=== PATIENT | female | born 1975 | race Caucasian/White ===

== ENCOUNTER → 2016-06-23 | Outpatient (CLI) | payer OTHER, MEDICARE ==
[~2016-06-23] MED LIST: AMITRIPTYLINE H50 M1 PO; AMITRIPTYLINE25 MG PO; AUGMENTIN 875 M1 TAB PO; BENTYL 20MG TAB20 MG PO; BENTYL 20MG20 MG/TAB PO; BENTYL20 MG PO; BIAXIN FILMTAB500 MG PO; CARAFATE 1GM1 G PO; CARAFATE PO; CIPRO 500MG TA500 MG PO; CORTIFOAM10% RC; DEPAKOTE ER 25250 MG PO; FIORICET 325 MG1 TA1 PO; HYDROXYZINE PO; IMODIUM 2MG CAPS2 MG PO; IMODIUM2 MG PO; KAPIDEX; LEVAQUIN 5500 MG/TAB PO; LOMOTIL 0.025 M1 TAB PO; LORTAB 10/500 51 TAB PO; LORTAB 5/500 501 TAB; LORTAB 5/500 501 TAB PO; LORTAB 7.5/5001 TAB; NASONEX SPRAY; NEXIUM 40MG40 MG PO; NEXIUM40 MG PO; NORCO 325 MG-101 TAB PO; NORCO 325 MG-51 TAB PO; PHENERGAN 25 TA25 MG PO; PHENERGAN25 MG; PHENERGAN25 MG RC; PREDNISONE10 MG; PREDNISONE10 MG PO; PREDNISONE20 MG PO; PREMARIN 1.251.25 MG PO; PYRIDIUM 100MG100 MG PO; SINGULAIR; SINGULAIR 110 MG/TAB PO; SOMA 350MG350 MG/TAB PO; ULTRAM 50MG TAB50 MG PO; VANCOMYCIN PO; VICODIN 5/5001 UDTAB PO; ZOFRAN 4MG T4 MG/TAB PO; [UNRECOGNIZED DRUG - CODE]; [UNRECOGNIZED DRUG - OTHER]
[2016-06-23 16:05] LABS: ADJUSTED CALCIUM 10.3 mg/dL (8.4-10.2); BILIRUBIN,TOTAL 0.5 mg/dL (0.0-1.0); CALCIUM 10.3 mg/dL (8.4-10.2); CREATININE, serum 0.52 mg/dL (0.52-1.25); POTASSIUM 4.2 mmol/L (3.4-5.0); TOTAL PROTEIN 7.2 gm/dL (6.4-8.2)
== END ==
LOC: ZCOL.LAB 16:02
DX: Z02.89 Encounter for other administrative examinations (principal)

== ENCOUNTER 2016-07-27 12:01 | Outpatient (CLI) | payer OTHER, MEDICARE | END 2016-07-27 12:07 | disposition home or self-care (01) | LOC: EUO 12:01 | DX: Z01.89 Encounter for other specified special examinations (principal) ==

== ENCOUNTER 2016-08-23 09:00 | Outpatient (RCR) | payer OTHER, MEDICARE ==
[2008-01-11 15:04] VITALS: BP 127/98
[2016-07-12 11:26] LABS: MEAN CELL VOLUME 71 fl (80.0-100.0); MEAN CORPUSCULAR HGB CONC 27 g/dl (33.0-37.0); MEAN PLATELET VOLUME 8.8 fl (7.4-10.4); PLATELET COUNT 930 K/mm3 (130-400); RED BLOOD COUNT 3.42 M/mm3 (4.10-5.30); WHITE BLOOD COUNT 19.4 K/mm3 (4.8-10.8)
[2016-07-12 11:29] LABS: HEMATOCRIT 24.4 % (37.0-47.0); HEMOGLOBIN 6.6 g/dl (12.5-16.0); MEAN CORPUSCULAR HEMOGLOBIN 19 pg (27.0-31.0)
[2016-07-12 11:43] VITALS: BP 133/80; PULSE 105; TEMP 98
[2016-07-12 12:14] LABS: ALBUMIN 3.7 gm/dL (3.5-5.0); BILIRUBIN,TOTAL 0.4 mg/dL (0.0-1.0); TOTAL PROTEIN 7.3 gm/dL (6.4-8.2)
[2016-07-12 13:08] LABS: BILIRUBIN,DIRECT 0.4 mg/dL (0.0-0.4)
[2016-07-26 11:28] LABS: MEAN CELL VOLUME 73 fl (80.0-100.0); MEAN CORPUSCULAR HGB CONC 26 g/dl (33.0-37.0); MEAN PLATELET VOLUME 9.2 fl (7.4-10.4); PLATELET COUNT 476 K/mm3 (130-400); RED BLOOD COUNT 3.45 M/mm3 (4.10-5.30); REDCELL DISTRIBUTION WIDTH-CV 17.3 % (11.5-14.5); WHITE BLOOD COUNT 11.4 K/mm3 (4.8-10.8)
[2016-07-26 11:40] LABS: HEMATOCRIT 25.1 % (37.0-47.0); HEMOGLOBIN 6.4 g/dl (12.5-16.0); MEAN CORPUSCULAR HEMOGLOBIN 19 pg (27.0-31.0)
[2016-07-26 11:44] LABS: ALBUMIN 4.1 gm/dL (3.5-5.0); BILIRUBIN,TOTAL 0.4 mg/dL (0.0-1.0); TOTAL PROTEIN 7.5 gm/dL (6.4-8.2)
[2016-07-26 11:58] LABS: BILIRUBIN,DIRECT 0.4 mg/dL (0.0-0.4)
[2016-07-26 12:00] VITALS: BP 133/91; PULSE 94; TEMP 97.6
[2016-07-27] VITALS (10 sets, daily range): BP systolic 112–139; BP diastolic 72–93; PULSE 93–102; TEMP 97.6–98.2
[~2016-08-23] VITALS: Ht 157.5 cm; Wt 53.6 kg
[2016-08-23 09:36] VITALS: BP 134/99; PULSE 98; TEMP 98.6
[2016-08-23 09:37] LABS: ALANINE AMINOTRANSFERASE 15 U/L (9-52); ALKALINE PHOSPHATASE 79 U/L (50-136); TOTAL PROTEIN 7.1 gm/dL (6.4-8.2)
[2016-08-23 10:17] LABS: MEAN CELL VOLUME 78 fl (80.0-100.0); MEAN CORPUSCULAR HGB CONC 28 g/dl (33.0-37.0); MEAN PLATELET VOLUME 9.4 fl (7.4-10.4); PLATELET COUNT 562 K/mm3 (130-400); RED BLOOD COUNT 3.98 M/mm3 (4.10-5.30); REDCELL DISTRIBUTION WIDTH-CV 22.6 % (11.5-14.5); WHITE BLOOD COUNT 12.3 K/mm3 (4.8-10.8)
[2016-08-23 10:22] LABS: HEMATOCRIT 30.9 % (37.0-47.0); HEMOGLOBIN 8.5 g/dl (12.5-16.0); MEAN CORPUSCULAR HEMOGLOBIN 21 pg (27.0-31.0)
[2016-08-23 11:23] LABS: BILIRUBIN,TOTAL 0.2 mg/dL (0.0-1.0)
== END 2016-08-23 13:35 | disposition home or self-care (01) ==
LOC: EUO 09:00
PROVIDERS: Internal Medicine; Internal Medicine Gastroenterology
DX: D64.9 Anemia, unspecified (principal); K52.9 Noninfective gastroenteritis and colitis, unspecified; Z79.899 Other long term (current) drug therapy
CPT/HCPCS: J3380; J7050; P9016

== ENCOUNTER 2016-10-18 08:51 | Outpatient (CLI) | payer OTHER, MEDICARE ==
[2008-01-11 15:04] VITALS: BP 127/98
[~2016-10-18] VITALS: Ht 157.5 cm; Wt 59.5 kg
[2016-10-18 09:36] LABS: MEAN CELL VOLUME 74 fl (80.0-100.0); MEAN CORPUSCULAR HGB CONC 28 g/dl (33.0-37.0); MEAN PLATELET VOLUME 9.8 fl (7.4-10.4); PLATELET COUNT 530 K/mm3 (130-400); RED BLOOD COUNT 4.14 M/mm3 (4.10-5.30); REDCELL DISTRIBUTION WIDTH-CV 16.3 % (11.5-14.5); WHITE BLOOD COUNT 7.7 K/mm3 (4.8-10.8)
[2016-10-18 09:41] LABS: HEMATOCRIT 30.8 % (37.0-47.0); HEMOGLOBIN 8.6 g/dl (12.5-16.0); MEAN CORPUSCULAR HEMOGLOBIN 21 pg (27.0-31.0)
[2016-10-18 09:48] LABS: ALANINE AMINOTRANSFERASE 23 U/L (9-52); ALBUMIN 4.1 gm/dL (3.5-5.0); ALKALINE PHOSPHATASE 67 U/L (50-136); BILIRUBIN,TOTAL 0.2 mg/dL (0.0-1.0); TOTAL PROTEIN 7.2 gm/dL (6.4-8.2)
[2016-10-18 10:06] VITALS: BP 128/88; PULSE 94; TEMP 98.1
== END 2016-10-18 11:22 | disposition home or self-care (01) ==
LOC: EUO 08:51
PROVIDERS: Internal Medicine Gastroenterology
DX: K51.818 Other ulcerative colitis with other complication (principal)
CPT/HCPCS: J3380; J7050

== ENCOUNTER 2016-12-13 08:48 | Outpatient (CLI) | payer OTHER, MEDICARE ==
[2008-01-11 15:04] VITALS: BP 127/98
[~2016-12-13] VITALS: Ht 157.5 cm; Wt 60.0 kg
[2016-12-13 09:19] LABS: MEAN CELL VOLUME 74 fl (80.0-100.0); MEAN CORPUSCULAR HGB CONC 27 g/dl (33.0-37.0); MEAN PLATELET VOLUME 9.6 fl (7.4-10.4); PLATELET COUNT 493 K/mm3 (130-400); WHITE BLOOD COUNT 8.9 K/mm3 (4.8-10.8)
[2016-12-13 09:36] LABS: ALBUMIN 4.3 gm/dL (3.5-5.0); TOTAL PROTEIN 7.5 gm/dL (6.4-8.2)
[2016-12-13 09:41] VITALS: BP 144/98; PULSE 82; TEMP 97.7
[2016-12-13 09:46] LABS: HEMATOCRIT 32.4 % (37.0-47.0); HEMOGLOBIN 8.8 g/dl (12.5-16.0); MEAN CORPUSCULAR HEMOGLOBIN 20 pg (27.0-31.0); RED BLOOD COUNT 4.38 M/mm3 (4.10-5.30)
[2016-12-13 09:49] LABS: BILIRUBIN,DIRECT 0.3 mg/dL (0.0-0.4); BILIRUBIN,TOTAL 0.3 mg/dL (0.0-1.0)
== END 2016-12-13 12:00 | disposition home or self-care (01) ==
LOC: EUO 08:48
PROVIDERS: Internal Medicine Gastroenterology
DX: K51.818 Other ulcerative colitis with other complication (principal); Z79.899 Other long term (current) drug therapy
CPT/HCPCS: J3380; J7050

== ENCOUNTER 2017-01-06 09:30 | Outpatient (RCR) | payer OTHER, MEDICARE ==
[2008-01-11 15:04] VITALS: BP 127/98
[2016-12-30 15:21] VITALS: BP 134/88; PULSE 93; TEMP 97.4
[2017-01-02 11:09] VITALS: BP 123/84; PULSE 86; TEMP 98.4
[2017-01-04 10:50] VITALS: BP 127/97; PULSE 95; TEMP 98.7
[~2017-01-06] VITALS: Ht 157.5 cm; Wt 62.9 kg
[~2017-01-06 09:30] MED LIST changes: +OMNICEF 300MG300 MG PO
[2017-01-06 10:15] VITALS: BP 140/95; PULSE 82; TEMP 98.8
== END 2017-01-06 12:23 | disposition home or self-care (01) ==
LOC: EUO 09:30
DX: D64.9 Anemia, unspecified (principal); K63.89 Other specified diseases of intestine
CPT/HCPCS: J2916

== ENCOUNTER 2017-02-07 08:59 | Outpatient (CLI) | payer OTHER, MEDICARE ==
[2008-01-11 15:04] VITALS: BP 127/98
[~2017-02-07] VITALS: Ht 157.5 cm; Wt 61.0 kg
[2017-02-07 09:22] LABS: HEMATOCRIT 43.2 % (37.0-47.0); MEAN CELL VOLUME 85 fl (80.0-100.0); MEAN CORPUSCULAR HEMOGLOBIN 26 pg (27.0-31.0); MEAN CORPUSCULAR HGB CONC 30 g/dl (33.0-37.0); MEAN PLATELET VOLUME 9.9 fl (7.4-10.4); PLATELET COUNT 389 K/mm3 (130-400)
[2017-02-07 10:09] LABS: ALBUMIN 4.4 gm/dL (3.5-5.0); BILIRUBIN,TOTAL 0.2 mg/dL (0.0-1.0); TOTAL PROTEIN 7.4 gm/dL (6.4-8.2)
[2017-02-07 10:25] VITALS: BP 128/90; PULSE 74; TEMP 98.2
[2017-02-07 10:34] LABS: BILIRUBIN,DIRECT 0.2 mg/dL (0.0-0.4)
== END 2017-02-07 12:13 | disposition home or self-care (01) ==
LOC: EUO 08:59
PROVIDERS: Internal Medicine Gastroenterology
DX: K51.818 Other ulcerative colitis with other complication (principal); Z79.899 Other long term (current) drug therapy
CPT/HCPCS: J3380; J7050

== ENCOUNTER 2017-04-06 09:00 | Outpatient (CLI) | payer OTHER, MEDICARE ==
[2008-01-11 15:04] VITALS: BP 127/98
[~2017-04-06] VITALS: Ht 157.5 cm; Wt 60.8 kg
[2017-04-06 09:46] LABS: HEMOGLOBIN 13.1 g/dl (12.5-16.0); MEAN CELL VOLUME 89 fl (80.0-100.0); MEAN CORPUSCULAR HEMOGLOBIN 28 pg (27.0-31.0); MEAN CORPUSCULAR HGB CONC 31 g/dl (33.0-37.0); MEAN PLATELET VOLUME 9.5 fl (7.4-10.4); PLATELET COUNT 364 K/mm3 (130-400); REDCELL DISTRIBUTION WIDTH-CV 16.4 % (11.5-14.5)
[2017-04-06 09:59] LABS: ALBUMIN 4.4 gm/dL (3.5-5.0); TOTAL PROTEIN 7.3 gm/dL (6.4-8.2)
[2017-04-06 10:08] LABS: BILIRUBIN,DIRECT 0.1 mg/dL (0.0-0.4); BILIRUBIN,TOTAL 0.1 mg/dL (0.0-1.0)
[2017-04-06 10:41] VITALS: BP 133/92; PULSE 89; TEMP 98.1
== END 2017-04-06 13:23 | disposition home or self-care (01) ==
LOC: EUO 09:00
PROVIDERS: Internal Medicine Gastroenterology
DX: K51.818 Other ulcerative colitis with other complication (principal)
CPT/HCPCS: J3380; J7050

== ENCOUNTER 2017-05-02 16:01 | Emergency (ER) | payer OTHER, MEDICARE ==
[2008-01-11 15:04] VITALS: BP 127/98
[~2017-05-02] VITALS: Ht 157.5 cm; Wt 59.1 kg
[2017-05-02 16:23] VITALS: TEMP 98.2
[2017-05-02 17:47] LABS: BASO # 0.1 (0.0-0.2); BASO % 0.5 % (0.0-2.0); EOS # 0.3 (0.0-0.7); GRAN # 12.4 (1.4-6.5); GRAN % 76.2 % (42.2-75.2); LYMPH # 2.4 (1.2-3.4); LYMPH % 14.5 % (20.0-51.0); MEAN CELL VOLUME 91 fl (80.0-100.0); MEAN CORPUSCULAR HGB CONC 32 g/dl (33.0-37.0); MEAN PLATELET VOLUME 9.6 fl (7.4-10.4); MONO % 6.4 % (1.7-9.3); PLATELET COUNT 313 K/mm3 (130-400); RED BLOOD COUNT 4.05 M/mm3 (4.10-5.30); REDCELL DISTRIBUTION WIDTH-CV 14.5 % (11.5-14.5)
[2017-05-02 17:51] LABS: INR 1.1 (0.8-3.0); PROTHROMBIN TIME 12.4 SECONDS (9.7-12.8)
[2017-05-02 17:55] LABS: ALANINE AMINOTRANSFERASE 22 U/L (9-52); ALBUMIN 3.4 gm/dL (3.5-5.0); ALKALINE PHOSPHATASE 70 U/L (50-136); ANION GAP 6 mmol/L (7-16); AST,SGOT 14 U/L (15-37); BILIRUBIN,TOTAL < 0.1 mg/dL (0.0-1.0); BLOOD UREA NITROGEN 12 mg/dL (7-17); CALCIUM 8.5 mg/dL (8.4-10.2); CARBON DIOXIDE 28 mmol/L (22-30); CHLORIDE 103 mmol/L (98-107); CREATININE, serum 0.64 mg/dL (0.52-1.25); GLUCOSE 97 mg/dL (74-106); POTASSIUM 3.7 mmol/L (3.4-5.0); SODIUM 137 mmol/L (137-145); TOTAL PROTEIN 5.9 gm/dL (6.4-8.2)
[2017-05-02 17:59] LABS: HEMATOCRIT 36.8 % (37.0-47.0); HEMOGLOBIN 11.6 g/dl (12.5-16.0); MEAN CORPUSCULAR HEMOGLOBIN 29 pg (27.0-31.0)
[2017-05-02 18:03] VITALS: BP 114/84; PULSE 84
== END 2017-05-02 18:16 | disposition short-term general hospital (02) ==
LOC: COL.ER 16:01
PROVIDERS: Emergency Medicine
DX: J95.861 Postprocedural hematoma of a respiratory system organ or structure following other procedure (principal); Z95.818 Presence of other cardiac implants and grafts
CPT/HCPCS: J3010; J7030; Q9967

== ENCOUNTER 2017-06-01 16:21 | Observation (INO) | payer OTHER, MEDICARE ==
[2017-06-01 16:39] VITALS: BP 121/85; PULSE 98; TEMP 98.6
[2017-06-01 17:47] VITALS: BP 121/85; PULSE 98; TEMP 98.6
== END 2017-06-01 18:55 | disposition critical access hospital (66) ==
LOC: PEDS 16:21
DX: I82.611 Acute embolism and thrombosis of superficial veins of right upper extremity (principal); D64.9 Anemia, unspecified; Z90.710 Acquired absence of both cervix and uterus; Z79.52 Long term (current) use of systemic steroids; Z88.2 Allergy status to sulfonamides; Z88.1 Allergy status to other antibiotic agents; Z88.5 Allergy status to narcotic agent; Z88.8 Allergy status to other drugs, medicaments and biological substances; Z87.891 Personal history of nicotine dependence; Z87.11 Personal history of peptic ulcer disease
CPT/HCPCS: 99223-AI

== ENCOUNTER → 2017-06-01 | Outpatient (CLI) | payer OTHER, MEDICARE | LOC: COL.VAS 12:46 | DX: I82.611 Acute embolism and thrombosis of superficial veins of right upper extremity (principal); I82.B11 Acute embolism and thrombosis of right subclavian vein; Z95.828 Presence of other vascular implants and grafts ==

== ENCOUNTER → 2017-07-19 | Outpatient (CLI) | payer OTHER, MEDICARE | LOC: COL.VAS 13:46 | DX: I82.B11 Acute embolism and thrombosis of right subclavian vein (principal); I82.A11 Acute embolism and thrombosis of right axillary vein; R22.2 Localized swelling, mass and lump, trunk; Z95.828 Presence of other vascular implants and grafts ==

== ENCOUNTER 2017-07-26 07:57 | Outpatient (CLI) | payer OTHER, MEDICARE ==
[2008-01-11 15:04] VITALS: BP 127/98
[~2017-07-26] VITALS: Ht 170.2 cm; Wt 60.0 kg
[2017-07-26 08:20] VITALS: BP 132/82; PULSE 91; TEMP 98.4
[2017-07-26 08:23] LABS: HEMATOCRIT 37.6 % (37.0-47.0); HEMOGLOBIN 11.7 g/dl (12.5-16.0); MEAN CELL VOLUME 84 fl (80.0-100.0); MEAN CORPUSCULAR HEMOGLOBIN 26 pg (27.0-31.0); MEAN CORPUSCULAR HGB CONC 31 g/dl (33.0-37.0); MEAN PLATELET VOLUME 9.7 fl (7.4-10.4); PLATELET COUNT 380 K/mm3 (130-400); RED BLOOD COUNT 4.48 M/mm3 (4.10-5.30); REDCELL DISTRIBUTION WIDTH-CV 12.7 % (11.5-14.5)
[2017-07-26 08:35] LABS: BILIRUBIN,TOTAL 0.2 mg/dL (0.0-1.0); TOTAL PROTEIN 7.5 gm/dL (6.4-8.2)
[2017-07-26 08:43] LABS: BILIRUBIN,DIRECT 0.2 mg/dL (0.0-0.4)
== END 2017-07-26 10:05 | disposition home or self-care (01) ==
LOC: EUO 07:57
PROVIDERS: Internal Medicine Gastroenterology
DX: K51.818 Other ulcerative colitis with other complication (principal); Z79.899 Other long term (current) drug therapy
CPT/HCPCS: J3380; J7050

== ENCOUNTER 2017-11-15 11:02 | Outpatient (CLI) | payer OTHER, MEDICARE ==
[2008-01-11 15:04] VITALS: BP 127/98
[~2017-11-15] VITALS: Ht 170.2 cm; Wt 63.3 kg
[~2017-11-15 11:02] MED LIST changes: +COUMADIN 1010 MG/TAB PO; +PROTONIX 40MG T40 MG PO; +ZANTAC 150MG T150 MG PO
[2017-11-15 11:44] LABS: HEMOGLOBIN 10.1 g/dl (12.5-16.0); MEAN CELL VOLUME 81 fl (80.0-100.0); MEAN CORPUSCULAR HEMOGLOBIN 24 pg (27.0-31.0); MEAN CORPUSCULAR HGB CONC 30 g/dl (33.0-37.0); MEAN PLATELET VOLUME 9.7 fl (7.4-10.4); PLATELET COUNT 435 K/mm3 (130-400); RED BLOOD COUNT 4.14 M/mm3 (4.10-5.30); REDCELL DISTRIBUTION WIDTH-CV 16.7 % (11.5-14.5)
[2017-11-15 11:46] VITALS: BP 123/85; PULSE 90; TEMP 98.2
[2017-11-15 11:46] LABS: ALBUMIN 3.7 gm/dL (3.5-5.0); BILIRUBIN,DIRECT 0.3 mg/dL (0.0-0.4); BILIRUBIN,TOTAL 0.3 mg/dL (0.0-1.0); TOTAL PROTEIN 6.8 gm/dL (6.4-8.2)
[2017-11-15 11:47] LABS: HEMATOCRIT 33.7 % (37.0-47.0)
== END 2017-11-15 13:04 | disposition home or self-care (01) ==
LOC: EUO 11:02
PROVIDERS: Internal Medicine Gastroenterology
DX: K51.818 Other ulcerative colitis with other complication (principal); Z79.899 Other long term (current) drug therapy
CPT/HCPCS: J3380; J7050

== ENCOUNTER → 2017-11-20 | Outpatient (CLI) | payer OTHER, MEDICARE | LOC: ZCOL.LAB 14:03 | DX: Z01.89 Encounter for other specified special examinations (principal) ==

== ENCOUNTER 2018-01-04 08:00 | Outpatient (RCR) | payer OTHER, MEDICARE ==
[2008-01-11 15:04] VITALS: BP 127/98
[2017-12-13 14:47] VITALS: BP 145/103; PULSE 100; TEMP 99
[2017-12-15 08:19] VITALS: BP 133/100; PULSE 93; TEMP 97.2
[2017-12-16 07:15] VITALS: BP 133/92; PULSE 107; TEMP 98.4
[2017-12-18 08:33] VITALS: BP 143/88; PULSE 92; TEMP 98.5
[2017-12-21 08:15] VITALS: BP 132/104; PULSE 104; TEMP 97.8
[2017-12-28 08:14] VITALS: BP 129/96; PULSE 107; TEMP 98
[~2018-01-04] VITALS: Ht 170.2 cm; Wt 63.0 kg
[~2018-01-04 08:00] MED LIST changes: +NULECIT62.5 MG/5 IV
[2018-01-04 08:19] VITALS: BP 134/98; PULSE 76; TEMP 97.6
[2018-01-10 12:04] VITALS: BP 152/97; PULSE 77; TEMP 97.3
[2018-01-10 12:20] LABS: MEAN CELL VOLUME 87 fl (80.0-100.0); MEAN CORPUSCULAR HEMOGLOBIN 27 pg (27.0-31.0); MEAN CORPUSCULAR HGB CONC 31 g/dl (33.0-37.0); MEAN PLATELET VOLUME 10.1 fl (7.4-10.4); PLATELET COUNT 324 K/mm3 (130-400); RED BLOOD COUNT 4.48 M/mm3 (4.10-5.30); REDCELL DISTRIBUTION WIDTH-CV 23.3 % (11.5-14.5)
[2018-01-10 12:27] LABS: ALBUMIN 4.2 gm/dL (3.5-5.0); BILIRUBIN,DIRECT 0.2 mg/dL (0.0-0.4); BILIRUBIN,TOTAL 0.2 mg/dL (0.0-1.0); TOTAL PROTEIN 7.2 gm/dL (6.4-8.2)
== END 2018-01-10 14:23 | disposition home or self-care (01) ==
LOC: EUO 08:00
PROVIDERS: Internal Medicine Gastroenterology
DX: K51.818 Other ulcerative colitis with other complication (principal); D63.8 Anemia in other chronic diseases classified elsewhere; Z45.2 Encounter for adjustment and management of vascular access device; Z95.828 Presence of other vascular implants and grafts; Z79.01 Long term (current) use of anticoagulants; Z86.718 Personal history of other venous thrombosis and embolism
CPT/HCPCS: C1751; J2916; J3380; J7050

== ENCOUNTER → 2018-01-23 | Outpatient (CLI) | payer OTHER, MEDICARE | LOC: COL.VAS 01-22 11:15 | DX: I82.B21 Chronic embolism and thrombosis of right subclavian vein (principal); I82.621 Acute embolism and thrombosis of deep veins of right upper extremity ==

== ENCOUNTER 2018-03-07 13:07 | Outpatient (CLI) | payer OTHER, MEDICARE ==
[2008-01-11 15:04] VITALS: BP 127/98
[~2018-03-07] VITALS: Ht 170.2 cm; Wt 62.0 kg
[2018-03-07] MEDS ORDERED: NEXIUM 40MG40 MG PO (13:30)
[2018-03-07 13:33] LABS: HEMATOCRIT 42.2 % (37.0-47.0); HEMOGLOBIN 13.5 g/dl (12.5-16.0); MEAN CELL VOLUME 88 fl (80.0-100.0); MEAN CORPUSCULAR HEMOGLOBIN 28 pg (27.0-31.0); MEAN CORPUSCULAR HGB CONC 32 g/dl (33.0-37.0); MEAN PLATELET VOLUME 9.5 fl (7.4-10.4); PLATELET COUNT 350 K/mm3 (130-400); RED BLOOD COUNT 4.82 M/mm3 (4.10-5.30); REDCELL DISTRIBUTION WIDTH-CV 17.4 % (11.5-14.5)
[2018-03-07 13:49] LABS: ALBUMIN 4.3 gm/dL (3.5-5.0); BILIRUBIN,DIRECT 0.2 mg/dL (0.0-0.4); BILIRUBIN,TOTAL 0.2 mg/dL (0.0-1.0); TOTAL PROTEIN 7.5 gm/dL (6.4-8.2)
[2018-03-07 14:30] VITALS: BP 146/96; PULSE 97; TEMP 97
== END 2018-03-07 15:03 | disposition home or self-care (01) ==
LOC: EUO 13:07
PROVIDERS: Internal Medicine Gastroenterology
DX: K51.818 Other ulcerative colitis with other complication (principal); Z79.899 Other long term (current) drug therapy
CPT/HCPCS: J3380; J7050

== ENCOUNTER 2018-05-02 12:56 | Outpatient (CLI) | payer OTHER, MEDICARE ==
[2008-01-11 15:04] VITALS: BP 127/98
[~2018-05-02] VITALS: Ht 170.2 cm; Wt 65.5 kg
[2018-05-02 13:24] LABS: HEMATOCRIT 40.3 % (37.0-47.0); HEMOGLOBIN 12.8 g/dl (12.5-16.0); MEAN CELL VOLUME 91 fl (80.0-100.0); MEAN CORPUSCULAR HEMOGLOBIN 29 pg (27.0-31.0); MEAN CORPUSCULAR HGB CONC 32 g/dl (33.0-37.0); MEAN PLATELET VOLUME 9.8 fl (7.4-10.4); PLATELET COUNT 393 K/mm3 (130-400); RED BLOOD COUNT 4.42 M/mm3 (4.10-5.30); REDCELL DISTRIBUTION WIDTH-CV 14.6 % (11.5-14.5)
[2018-05-02 14:30] VITALS: BP 128/64; PULSE 82; TEMP 97.9
[2018-05-02 14:38] LABS: ALANINE AMINOTRANSFERASE 51 U/L (9-52); ALBUMIN 4.3 gm/dL (3.5-5.0); ALKALINE PHOSPHATASE 80 U/L (50-136); AST,SGOT 30 U/L (15-37); BILIRUBIN UNCONJUGATED 0.1 mg/dL (0.0-1.1); BILIRUBIN,TOTAL < 0.1 mg/dL (0.0-1.0); TOTAL PROTEIN 7.6 gm/dL (6.4-8.2)
== END 2018-05-02 15:26 | disposition home or self-care (01) ==
LOC: EUO 12:56
PROVIDERS: Internal Medicine Gastroenterology
DX: K51.818 Other ulcerative colitis with other complication (principal); Z79.899 Other long term (current) drug therapy
CPT/HCPCS: J3380; J7050

== ENCOUNTER → 2018-06-15 | Outpatient (CLI) | payer OTHER, MEDICARE | LOC: MC.RAD 07:15 | DX: Z12.31 Encounter for screening mammogram for malignant neoplasm of breast (principal) ==

== ENCOUNTER 2018-06-27 12:55 | Outpatient (CLI) | payer OTHER, MEDICARE ==
[2008-01-11 15:04] VITALS: BP 127/98
[~2018-06-27] VITALS: Ht 170.2 cm; Wt 66.4 kg
[2018-06-27 14:53] LABS: ALANINE AMINOTRANSFERASE 16 U/L (9-52); ALBUMIN 4.4 gm/dL (3.5-5.0); ALKALINE PHOSPHATASE 72 U/L (50-136); AST,SGOT 21 U/L (15-37); BILIRUBIN,TOTAL < 0.1 mg/dL (0.0-1.0)
[2018-06-27 14:55] LABS: HEMATOCRIT 41.8 % (37.0-47.0); HEMOGLOBIN 13.2 g/dl (12.5-16.0); MEAN CELL VOLUME 94 fl (80.0-100.0); MEAN CORPUSCULAR HEMOGLOBIN 30 pg (27.0-31.0); MEAN CORPUSCULAR HGB CONC 32 g/dl (33.0-37.0); MEAN PLATELET VOLUME 10.4 fl (7.4-10.4); PLATELET COUNT 313 K/mm3 (130-400); RED BLOOD COUNT 4.43 M/mm3 (4.10-5.30); REDCELL DISTRIBUTION WIDTH-CV 13.9 % (11.5-14.5)
[2018-06-27 16:07] VITALS: BP 121/91; PULSE 96; TEMP 98.2
== END 2018-06-27 16:49 | disposition home or self-care (01) ==
LOC: EUO 12:55
PROVIDERS: Internal Medicine Gastroenterology
DX: K51.818 Other ulcerative colitis with other complication (principal); Z79.899 Other long term (current) drug therapy
CPT/HCPCS: J3380; J7050

== ENCOUNTER → 2018-07-25 | Outpatient (CLI) | payer OTHER, MEDICARE | LOC: COL.VAS 09:39 | DX: I82.621 Acute embolism and thrombosis of deep veins of right upper extremity (principal) ==

== ENCOUNTER 2018-08-23 14:00 | Outpatient (CLI) | payer OTHER, MEDICARE ==
[~2018-08-23] VITALS: Ht 170.2 cm; Wt 62.0 kg
[2018-08-23 14:36] LABS: HEMATOCRIT 38.6 % (37.0-47.0); HEMOGLOBIN 12.3 g/dl (12.5-16.0); MEAN CELL VOLUME 90 fl (80.0-100.0); MEAN CORPUSCULAR HEMOGLOBIN 29 pg (27.0-31.0); MEAN CORPUSCULAR HGB CONC 32 g/dl (33.0-37.0); MEAN PLATELET VOLUME 9.8 fl (7.4-10.4); PLATELET COUNT 373 K/mm3 (130-400); RED BLOOD COUNT 4.28 M/mm3 (4.10-5.30); REDCELL DISTRIBUTION WIDTH-CV 13.6 % (11.5-14.5)
[2018-08-23 14:41] LABS: ALBUMIN 4.4 gm/dL (3.5-5.0); BILIRUBIN UNCONJUGATED 0.2 mg/dL (0.0-1.1); BILIRUBIN,DIRECT 0.2 mg/dL (0.0-0.4); BILIRUBIN,TOTAL 0.4 mg/dL (0.0-1.0); TOTAL PROTEIN 7.9 gm/dL (6.4-8.2)
[2018-08-23 15:00] VITALS: BP 128/89; PULSE 92; TEMP 98
== END 2018-08-23 19:00 | disposition home or self-care (01) ==
LOC: EUO 14:00
PROVIDERS: Internal Medicine Gastroenterology
DX: K51.818 Other ulcerative colitis with other complication (principal); Z79.899 Other long term (current) drug therapy
CPT/HCPCS: J3380; J7050

== ENCOUNTER 2018-12-17 14:04 | Outpatient (RCR) | payer OTHER, MEDICARE ==
[2008-01-11 15:04] VITALS: BP 127/98
[~2018-12-17] VITALS: Ht 160 cm; Wt 61.8 kg
[2018-12-17] MEDS ORDERED: FOSAMAX 70MG TA70 MG PO (14:25)
[2018-12-17] MEDS ORDERED: BUSPAR10 MG PO (16:18)
--- NOTE | 2018-12-17 16:45 | NUR ---
AIV and anesthesia unable to start PIV. Pt will return tomorrow to attempt PIV with ultrasound.
[2018-12-17 17:06] LABS: ALANINE AMINOTRANSFERASE 19 U/L (9-52); ALBUMIN 4.1 gm/dL (3.5-5.0); ALKALINE PHOSPHATASE 56 U/L (50-136); AST,SGOT 27 U/L (15-37); BILIRUBIN UNCONJUGATED 0.1 mg/dL (0.0-1.1); BILIRUBIN,TOTAL < 0.1 mg/dL (0.0-1.0); TOTAL PROTEIN 7.3 gm/dL (6.4-8.2)
[2018-12-18 10:35] VITALS: BP 128/94; PULSE 72; TEMP 97.8
--- NOTE | 2018-12-18 10:38 | NUR ---
Pt here for entyvio infusion, pt is awake and alert, p,w,d, resp reg and unlabored. 1 attempted 1 IV to lac without success. Elias RN at bs for IV attempt.
[2018-12-27 10:45] LABS: HEMATOCRIT 39.1 % (37.0-47.0); HEMOGLOBIN 12.3 g/dl (12.5-16.0); MEAN CELL VOLUME 97 fl (80.0-100.0); MEAN CORPUSCULAR HEMOGLOBIN 30 pg (27.0-31.0); MEAN CORPUSCULAR HGB CONC 32 g/dl (33.0-37.0); MEAN PLATELET VOLUME 9.4 fl (7.4-10.4); PLATELET COUNT 382 K/mm3 (130-400); RED BLOOD COUNT 4.05 M/mm3 (4.10-5.30); REDCELL DISTRIBUTION WIDTH-CV 13.2 % (11.5-14.5)
[2018-12-27 10:55] LABS: BILIRUBIN,TOTAL 0.2 mg/dL (0.0-1.0); TOTAL PROTEIN 7.1 gm/dL (6.4-8.2)
[2018-12-27 11:59] LABS: BILIRUBIN,DIRECT 0.1 mg/dL (0.0-0.4)
[2018-12-27 12:00] LABS: BILIRUBIN UNCONJUGATED 0.1 mg/dL (0.0-1.1)
[2019-02-21] MEDS ORDERED: PROLIA60 MG/ML SQ (13:08)
== END 2019-03-17 | disposition home or self-care (01) ==
LOC: EUO
PROVIDERS: Internal Medicine Gastroenterology
DX: K51.818 Other ulcerative colitis with other complication (principal); Z79.899 Other long term (current) drug therapy
CPT/HCPCS: J3380

== ENCOUNTER → 2018-12-27 13:42 | Outpatient (CLI) | payer OTHER, MEDICARE ==
[2008-01-11 15:04] VITALS: BP 127/98
[~2018-12-27] VITALS: Ht 160 cm; Wt 53.0 kg
[2018-12-27 11:50] VITALS: BP 112/78; PULSE 79; TEMP 98
[2018-12-27 12:25] VITALS: BP 118/82; PULSE 82; TEMP 98
[~2018-12-27 13:42] MED LIST changes: +BUSPAR10 MG PO; +FOSAMAX 70MG TA70 MG PO
== END | disposition home or self-care (01) ==
LOC: EUO 08:30
DX: K51.818 Other ulcerative colitis with other complication (principal); Z79.899 Other long term (current) drug therapy
CPT/HCPCS: J3380; J7050

== ENCOUNTER 2019-02-21 12:45 | Outpatient (CLI) | payer OTHER, MEDICARE ==
[2008-01-11 15:04] VITALS: BP 127/98
[~2019-02-21] VITALS: Ht 160 cm; Wt 63.7 kg
[2019-02-21] MEDS ORDERED: PROLIA60 MG/ML SQ (13:08)
[2019-02-21 13:10] VITALS: BP 129/94; PULSE 90; TEMP 97.9
[2019-02-21 13:13] LABS: HEMATOCRIT 38.6 % (37.0-47.0); HEMOGLOBIN 12.1 g/dl (12.5-16.0); MEAN CELL VOLUME 94 fl (80.0-100.0); MEAN CORPUSCULAR HEMOGLOBIN 30 pg (27.0-31.0); MEAN CORPUSCULAR HGB CONC 31 g/dl (33.0-37.0); MEAN PLATELET VOLUME 9.4 fl (7.4-10.4); PLATELET COUNT 338 K/mm3 (130-400); REDCELL DISTRIBUTION WIDTH-CV 13.2 % (11.5-14.5)
[2019-02-21 13:59] LABS: BILIRUBIN,DIRECT 0.1 mg/dL (0.0-0.4); BILIRUBIN,TOTAL 0.1 mg/dL (0.0-1.0)
== END 2019-02-21 15:10 | disposition home or self-care (01) ==
LOC: EUO 12:45
PROVIDERS: Internal Medicine Gastroenterology
DX: K51.818 Other ulcerative colitis with other complication (principal); Z79.899 Other long term (current) drug therapy
CPT/HCPCS: J1644; J3380; J7050

== ENCOUNTER 2019-04-18 12:44 | Outpatient (CLI) | payer OTHER, MEDICARE ==
[2008-01-11 15:04] VITALS: BP 127/98
[~2019-04-18] VITALS: Ht 160 cm; Wt 64.9 kg
[~2019-04-18 12:44] MED LIST changes: +PROLIA60 MG/ML SQ
[2019-04-18 13:27] LABS: HEMATOCRIT 38.9 % (37.0-47.0); HEMOGLOBIN 12.1 g/dl (12.5-16.0); MEAN CELL VOLUME 93 fl (80.0-100.0); MEAN CORPUSCULAR HEMOGLOBIN 29 pg (27.0-31.0); MEAN CORPUSCULAR HGB CONC 31 g/dl (33.0-37.0); MEAN PLATELET VOLUME 9.4 fl (7.4-10.4); PLATELET COUNT 416 K/mm3 (130-400)
[2019-04-18 13:51] LABS: ALANINE AMINOTRANSFERASE 24 U/L (9-52); ALBUMIN 3.9 gm/dL (3.5-5.0); ALKALINE PHOSPHATASE 52 U/L (50-136); AST,SGOT 20 U/L (15-37); BILIRUBIN,TOTAL < 0.1 mg/dL (0.0-1.0); TOTAL PROTEIN 7.3 gm/dL (6.4-8.2)
[2019-04-18 15:18] VITALS: BP 140/108; PULSE 114; TEMP 97.6
== END 2019-04-18 17:15 | disposition home or self-care (01) ==
LOC: EUO 12:44
PROVIDERS: Internal Medicine Gastroenterology
DX: K51.818 Other ulcerative colitis with other complication (principal); Z79.899 Other long term (current) drug therapy
CPT/HCPCS: J1644; J3380; J7050

== ENCOUNTER 2019-06-12 09:00 | Outpatient (CLI) | payer OTHER, MEDICARE ==
[~2019-06-12] VITALS: Ht 160 cm; Wt 64.9 kg
[2019-06-12] MEDS ORDERED: AJOVY225 MG/1.5 SQ (09:21)
[2019-06-12 09:23] LABS: HEMATOCRIT 40.2 % (37.0-47.0); HEMOGLOBIN 12.7 g/dl (12.5-16.0); MEAN CELL VOLUME 91 fl (80.0-100.0); MEAN CORPUSCULAR HEMOGLOBIN 29 pg (27.0-31.0); MEAN CORPUSCULAR HGB CONC 32 g/dl (33.0-37.0); MEAN PLATELET VOLUME 9.2 fl (7.4-10.4); PLATELET COUNT 363 K/mm3 (130-400); RED BLOOD COUNT 4.42 M/mm3 (4.10-5.30); REDCELL DISTRIBUTION WIDTH-CV 13.4 % (11.5-14.5)
[2019-06-12 09:28] VITALS: BP 122/90; PULSE 106; TEMP 97.5
[2019-06-12 09:34] LABS: ALBUMIN 4.2 gm/dL (3.5-5.0); BILIRUBIN,DIRECT 0.1 mg/dL (0.0-0.4); BILIRUBIN,TOTAL 0.1 mg/dL (0.0-1.0); TOTAL PROTEIN 7.6 gm/dL (6.4-8.2)
== END 2019-06-12 11:15 | disposition home or self-care (01) ==
LOC: EUO 09:00
PROVIDERS: Internal Medicine Gastroenterology
DX: K51.818 Other ulcerative colitis with other complication (principal); Z79.899 Other long term (current) drug therapy
CPT/HCPCS: J1644; J3380; J7050

== ENCOUNTER 2019-08-07 09:01 | Outpatient (CLI) | payer OTHER, MEDICARE ==
[~2019-08-07] VITALS: Ht 160 cm; Wt 65.6 kg
[~2019-08-07 09:01] MED LIST changes: +AJOVY225 MG/1.5 SQ
[2019-08-07] MEDS ORDERED: CYMBALTA 20MG20 MG PO (09:27)
[2019-08-07] MEDS ORDERED: AMBIEN CR6.25 MG PO (09:27)
[2019-08-07 09:37] VITALS: BP 122/92; PULSE 100; TEMP 98.4
[2019-08-07 09:40] LABS: HEMATOCRIT 37.7 % (37.0-47.0); HEMOGLOBIN 11.9 g/dl (12.5-16.0); MEAN CELL VOLUME 92 fl (80.0-100.0); MEAN CORPUSCULAR HEMOGLOBIN 29 pg (27.0-31.0); MEAN CORPUSCULAR HGB CONC 32 g/dl (33.0-37.0); MEAN PLATELET VOLUME 9.7 fl (7.4-10.4); PLATELET COUNT 334 K/mm3 (130-400); RED BLOOD COUNT 4.09 M/mm3 (4.10-5.30); REDCELL DISTRIBUTION WIDTH-CV 13.6 % (11.5-14.5)
== END 2019-08-07 12:23 | disposition home or self-care (01) ==
LOC: EUO 09:01
PROVIDERS: Internal Medicine Gastroenterology
DX: K51.818 Other ulcerative colitis with other complication (principal); Z79.899 Other long term (current) drug therapy
CPT/HCPCS: J1644; J3380; J7050

== ENCOUNTER 2019-10-02 13:57 | Outpatient (CLI) | payer OTHER, MEDICARE ==
[~2019-10-02] VITALS: Ht 160 cm; Wt 65.2 kg
[~2019-10-02 13:57] MED LIST changes: +AMBIEN CR6.25 MG PO; +CYMBALTA 20MG20 MG PO
[2019-10-02 14:25] LABS: HEMATOCRIT 38.9 % (37.0-47.0); HEMOGLOBIN 11.9 g/dl (12.5-16.0); MEAN CELL VOLUME 92 fl (80.0-100.0); MEAN CORPUSCULAR HEMOGLOBIN 28 pg (27.0-31.0); MEAN CORPUSCULAR HGB CONC 31 g/dl (33.0-37.0); MEAN PLATELET VOLUME 9.4 fl (7.4-10.4); PLATELET COUNT 358 K/mm3 (130-400); RED BLOOD COUNT 4.25 M/mm3 (4.10-5.30); REDCELL DISTRIBUTION WIDTH-CV 13.7 % (11.5-14.5)
[2019-10-02] MEDS ORDERED: DULOXETINE HCL40 MG PO (14:25)
[2019-10-02 14:55] VITALS: BP 119/90; PULSE 95; TEMP 98.7
[2019-10-02 15:33] VITALS: BP 116/84; PULSE 90
== END 2019-10-04 18:46 ==
LOC: EUO 13:57
PROVIDERS: Internal Medicine Gastroenterology
DX: K51.818 Other ulcerative colitis with other complication (principal)
CPT/HCPCS: J1644; J3380; J7050

== ENCOUNTER 2019-11-29 09:45 | Outpatient (CLI) | payer OTHER, MEDICARE ==
[~2019-11-29] VITALS: Ht 160 cm; Wt 64.8 kg
[~2019-11-29 09:45] MED LIST changes: +DULOXETINE HCL40 MG PO
[2019-11-29 10:12] LABS: HEMOGLOBIN 11.3 g/dl (12.5-16.0); MEAN CELL VOLUME 87 fl (80.0-100.0); MEAN CORPUSCULAR HEMOGLOBIN 27 pg (27.0-31.0); MEAN CORPUSCULAR HGB CONC 31 g/dl (33.0-37.0); MEAN PLATELET VOLUME 9.3 fl (7.4-10.4); PLATELET COUNT 407 K/mm3 (130-400); RED BLOOD COUNT 4.23 M/mm3 (4.10-5.30); REDCELL DISTRIBUTION WIDTH-CV 13.9 % (11.5-14.5)
[2019-11-29 10:16] VITALS: BP 123/91; PULSE 111; TEMP 98.2
[2019-11-29 10:16] LABS: HEMATOCRIT 36.7 % (37.0-47.0)
[2019-11-29] MEDS ORDERED: COUMADIN 22.5 MG/TAB PO (10:24)
[2019-11-29 11:11] VITALS: BP 136/95; PULSE 114
== END 2019-11-29 11:10 | disposition home or self-care (01) ==
LOC: EUO 09:45
PROVIDERS: Internal Medicine Gastroenterology
DX: K51.818 Other ulcerative colitis with other complication (principal); Z79.899 Other long term (current) drug therapy
CPT/HCPCS: J1644; J3380; J7050

== ENCOUNTER 2020-01-24 12:02 | Outpatient (CLI) | payer OTHER, MEDICARE ==
[2008-01-11 15:04] VITALS: BP 127/98
[~2020-01-24] VITALS: Ht 160 cm; Wt 67.8 kg
[~2020-01-24 12:02] MED LIST changes: +COUMADIN 22.5 MG/TAB PO; +COUMADIN 5MG5 MG/TAB PO
[2020-01-24 12:35] LABS: HEMOGLOBIN 10.2 g/dl (12.5-16.0); MEAN CELL VOLUME 86 fl (80.0-100.0); MEAN CORPUSCULAR HEMOGLOBIN 26 pg (27.0-31.0); MEAN CORPUSCULAR HGB CONC 31 g/dl (33.0-37.0); MEAN PLATELET VOLUME 9.1 fl (7.4-10.4); PLATELET COUNT 408 K/mm3 (130-400); RED BLOOD COUNT 3.89 M/mm3 (4.10-5.30)
[2020-01-24 12:38] LABS: HEMATOCRIT 33.3 % (37.0-47.0)
[2020-01-24 12:43] VITALS: BP 130/87; PULSE 100; TEMP 98.6
== END 2020-01-24 15:00 | disposition home or self-care (01) ==
LOC: EUO 12:02
PROVIDERS: Internal Medicine Gastroenterology
DX: K51.818 Other ulcerative colitis with other complication (principal); Z79.899 Other long term (current) drug therapy
CPT/HCPCS: J1644; J3380; J7050

== ENCOUNTER 2020-02-13 13:00 | Outpatient (RCR) | payer OTHER, MEDICARE ==
[2008-01-11 15:04] VITALS: BP 127/98
[2020-02-06 09:00] VITALS: BP 112/86; PULSE 66; TEMP 97.6
[~2020-02-13] VITALS: Ht 160 cm; Wt 67.2 kg
[2020-02-13 13:11] VITALS: BP 137/94; PULSE 94; TEMP 98
== END 2020-02-13 16:18 | disposition home or self-care (01) ==
LOC: EUO 13:00
DX: E61.1 Iron deficiency (principal)
CPT/HCPCS: J1644; J2916; J7050

== ENCOUNTER 2020-03-23 09:40 | Outpatient (CLI) | payer OTHER, MEDICARE ==
[~2020-03-23] VITALS: Ht 160 cm; Wt 70.0 kg
[2020-03-23 12:02] LABS: BASO # 0.1 (0.0-0.2); BASO % 0.7 % (0.0-2.0); EOS # 0.3 (0.0-0.7); EOS % 3.6 % (0-4.0); GRAN # 3.7 (1.4-6.5); GRAN % 52.3 % (42.2-75.2); HEMATOCRIT 37.8 % (37.0-47.0); HEMOGLOBIN 11.7 g/dl (12.5-16.0); LYMPH # 2.4 (1.2-3.4); MEAN CELL VOLUME 90 fl (80.0-100.0); MEAN CORPUSCULAR HEMOGLOBIN 28 pg (27.0-31.0); MEAN CORPUSCULAR HGB CONC 31 g/dl (33.0-37.0); MEAN PLATELET VOLUME 9.4 fl (7.4-10.4); MONO # 0.6 (0.1-0.6); MONO % 9.1 % (1.7-9.3); PLATELET COUNT 347 K/mm3 (130-400); RED BLOOD COUNT 4.22 M/mm3 (4.10-5.30); REDCELL DISTRIBUTION WIDTH-CV 17.6 % (11.5-14.5)
[2020-03-23 12:15] VITALS: BP 137/85; PULSE 87; TEMP 98.1
[2020-03-23 13:07] VITALS: BP 126/90; PULSE 95; TEMP 97.7
== END 2020-03-23 13:15 | disposition home or self-care (01) ==
LOC: EUO 09:40
PROVIDERS: Internal Medicine Gastroenterology
DX: K51.818 Other ulcerative colitis with other complication (principal); Z79.899 Other long term (current) drug therapy
CPT/HCPCS: J1644; J3380; J7050

== ENCOUNTER 2020-05-21 12:52 | Outpatient (CLI) | payer OTHER, MEDICARE ==
[2020-05-21 13:39] LABS: HEMATOCRIT 37.6 % (37.0-47.0); HEMOGLOBIN 11.6 g/dl (12.5-16.0); MEAN CELL VOLUME 89 fl (80.0-100.0); MEAN CORPUSCULAR HEMOGLOBIN 28 pg (27.0-31.0); MEAN CORPUSCULAR HGB CONC 31 g/dl (33.0-37.0); MEAN PLATELET VOLUME 9.2 fl (7.4-10.4); PLATELET COUNT 378 K/mm3 (130-400); RED BLOOD COUNT 4.21 M/mm3 (4.10-5.30); REDCELL DISTRIBUTION WIDTH-CV 14.5 % (11.5-14.5)
[2020-05-21 13:49] LABS: ALANINE AMINOTRANSFERASE 18 U/L (4-34); ALBUMIN 3.8 gm/dL (3.5-5.0); ALKALINE PHOSPHATASE 56 U/L (50-136); AST,SGOT 20 U/L (15-37)
[2020-05-21 13:57] LABS: BILIRUBIN,TOTAL < 0.1 mg/dL (0.0-1.0)
[2020-05-21 14:31] VITALS: BP 137/89; PULSE 95; TEMP 98.2
[2020-05-21] MEDS ORDERED: PREDNISONE20 MG PO (14:34)
== END 2020-05-21 16:57 | disposition home or self-care (01) ==
LOC: EUO 12:52
PROVIDERS: Internal Medicine Gastroenterology
DX: K51.00 Ulcerative (chronic) pancolitis without complications (principal)
CPT/HCPCS: J1644; J3380; J7050

== ENCOUNTER 2020-07-01 13:52 | Outpatient (CLI) | payer OTHER, MEDICARE ==
[2008-01-11 15:04] VITALS: BP 127/98
[~2020-07-01] VITALS: Ht 160 cm; Wt 71.3 kg
[2020-07-01 15:07] VITALS: BP 126/89; PULSE 101; TEMP 98.4
== END 2020-07-01 16:21 | disposition home or self-care (01) ==
LOC: EUO 13:52
DX: E61.1 Iron deficiency (principal); Z79.899 Other long term (current) drug therapy
CPT/HCPCS: J1644; J1756; J7050

== ENCOUNTER 2020-07-22 12:57 | Outpatient (CLI) | payer OTHER, MEDICARE ==
[~2020-07-22] VITALS: Ht 160 cm; Wt 70.0 kg
[2020-07-22 13:32] LABS: HEMATOCRIT 39.7 % (37.0-47.0); HEMOGLOBIN 12.5 g/dl (12.5-16.0); MEAN CELL VOLUME 89 fl (80.0-100.0); MEAN CORPUSCULAR HEMOGLOBIN 28 pg (27.0-31.0); MEAN CORPUSCULAR HGB CONC 32 g/dl (33.0-37.0); MEAN PLATELET VOLUME 9.1 fl (7.4-10.4); PLATELET COUNT 427 K/mm3 (130-400); RED BLOOD COUNT 4.46 M/mm3 (4.10-5.30); REDCELL DISTRIBUTION WIDTH-CV 14.9 % (11.5-14.5)
[2020-07-22 13:42] LABS: ALBUMIN 4.3 gm/dL (3.5-5.0); BILIRUBIN UNCONJUGATED 0.2 mg/dL (0.0-1.1); BILIRUBIN,TOTAL 0.2 mg/dL (0.0-1.0); TOTAL PROTEIN 7.7 gm/dL (6.4-8.2)
[2020-07-22 14:01] VITALS: BP 123/87; PULSE 100; TEMP 98.3
== END 2020-07-22 15:53 | disposition home or self-care (01) ==
LOC: EUO 12:57
PROVIDERS: Internal Medicine Gastroenterology
DX: K51.00 Ulcerative (chronic) pancolitis without complications (principal); Z79.899 Other long term (current) drug therapy
CPT/HCPCS: J1644; J3380; J7050

== ENCOUNTER 2020-10-09 14:51 | Outpatient (CLI) | payer OTHER, MEDICARE ==
[2008-01-11 15:04] VITALS: BP 127/98
[~2020-10-09] VITALS: Ht 160 cm; Wt 70.3 kg
[2020-10-09 15:30] VITALS: BP 113/80; PULSE 81; TEMP 98.3
[2020-10-09 15:55] LABS: HEMOGLOBIN 11.4 g/dl (12.5-16.0); MEAN CELL VOLUME 91 fl (80.0-100.0); MEAN CORPUSCULAR HEMOGLOBIN 28 pg (27.0-31.0); MEAN CORPUSCULAR HGB CONC 31 g/dl (33.0-37.0); MEAN PLATELET VOLUME 8.8 fl (7.4-10.4); PLATELET COUNT 479 K/mm3 (130-400); RED BLOOD COUNT 4.02 M/mm3 (4.10-5.30); REDCELL DISTRIBUTION WIDTH-CV 13.8 % (11.5-14.5)
[2020-10-09 16:06] LABS: ALBUMIN 3.6 gm/dL (3.5-5.0); BILIRUBIN,DIRECT 0.1 mg/dL (0.0-0.4); BILIRUBIN,TOTAL 0.1 mg/dL (0.0-1.0)
[2020-10-09 16:12] LABS: HEMATOCRIT 36.4 % (37.0-47.0)
== END 2020-10-09 17:28 ==
LOC: EUO 14:51
PROVIDERS: Internal Medicine Gastroenterology
DX: Z79.899 Other long term (current) drug therapy (principal)
CPT/HCPCS: J1644; J3380; J7050

== ENCOUNTER 2020-12-17 13:25 | Outpatient (CLI) | payer OTHER, MEDICARE ==
[2008-01-11 15:04] VITALS: BP 127/98
[~2020-12-17] VITALS: Ht 160 cm; Wt 70.6 kg
[2020-12-17 13:40] VITALS: BP 114/83; PULSE 62; TEMP 98
[2020-12-17 13:48] LABS: HEMOGLOBIN 13.3 g/dl (12.5-16.0); MEAN CELL VOLUME 89 fl (80.0-100.0); MEAN CORPUSCULAR HEMOGLOBIN 28 pg (27.0-31.0); MEAN CORPUSCULAR HGB CONC 32 g/dl (33.0-37.0); MEAN PLATELET VOLUME 9.2 fl (7.4-10.4); PLATELET COUNT 467 K/mm3 (130-400); RED BLOOD COUNT 4.72 M/mm3 (4.10-5.30); REDCELL DISTRIBUTION WIDTH-CV 14.4 % (11.5-14.5)
[2020-12-17 14:11] LABS: ALBUMIN 4.1 gm/dL (3.5-5.0); BILIRUBIN,TOTAL 0.2 mg/dL (0.2-1.2)
[2020-12-17 15:23] LABS: BILIRUBIN,DIRECT 0.1 mg/dL (0.0-0.5)
== END 2020-12-17 15:30 | disposition home or self-care (01) ==
LOC: EUO 13:25
PROVIDERS: Internal Medicine Gastroenterology
DX: K51.00 Ulcerative (chronic) pancolitis without complications (principal); Z79.899 Other long term (current) drug therapy
CPT/HCPCS: J1644; J3380; J7050

== ENCOUNTER 2021-03-04 13:03 | Outpatient (CLI) | payer OTHER, MEDICARE ==
[2008-01-11 15:04] VITALS: BP 127/98
[~2021-03-04] VITALS: Ht 160 cm; Wt 70.4 kg
[2021-03-04 13:38] VITALS: BP 104/58; PULSE 111; TEMP 97.6
[2021-03-04 13:38] LABS: BASO # 0.1 K/mm3 (0.0-0.2); EOS # 0.3 K/mm3 (0.0-0.7); EOS % 3.4 % (0.0-4.0); GRAN # 5.7 K/mm3 (1.4-6.5); GRAN % 63.5 % (42.2-75.2); HEMATOCRIT 38.2 % (37.0-47.0); HEMOGLOBIN 11.9 g/dl (12.5-16.0); LYMPH # 2.2 K/mm3 (1.2-3.4); LYMPH % 24.3 % (20.0-51.0); MEAN CELL VOLUME 88 fl (80.0-100.0); MEAN CORPUSCULAR HEMOGLOBIN 28 pg (27-31); MEAN CORPUSCULAR HGB CONC 31 g/dl (33.0-37.0); MEAN PLATELET VOLUME 9.5 fl (7.4-10.4); MONO # 0.7 K/mm3 (0.1-0.6); MONO % 7.5 % (1.7-9.3); PLATELET COUNT 500 K/mm3 (130-400); RED BLOOD COUNT 4.32 M/mm3 (4.10-5.30); REDCELL DISTRIBUTION WIDTH-CV 14.1 % (11.5-14.5)
[2021-03-04 13:51] LABS: ALBUMIN 3.7 gm/dL (3.5-5.0); BILIRUBIN,DIRECT 0.1 mg/dL (0.0-0.5); BILIRUBIN,TOTAL 0.1 mg/dL (0.2-1.2); TOTAL PROTEIN 7.6 gm/dL (6.2-8.1)
[2021-03-04] MEDS ORDERED: ENTYVIO IV (14:25)
== END 2021-03-04 16:17 | disposition home or self-care (01) ==
LOC: EUO 13:03
PROVIDERS: Internal Medicine Gastroenterology
DX: K51.00 Ulcerative (chronic) pancolitis without complications (principal); Z95.9 Presence of cardiac and vascular implant and graft, unspecified; Z79.899 Other long term (current) drug therapy
CPT/HCPCS: J1644; J3380; J7050

== ENCOUNTER 2021-11-12 09:00 | Outpatient (RCR) | payer OTHER, MEDICARE ==
[2008-01-11 15:04] VITALS: BP 127/98
[2021-11-05 09:53] VITALS: BP 129/82; PULSE 82; TEMP 98.2
[~2021-11-12] VITALS: Ht 160 cm; Wt 70.8 kg
[2021-11-12 09:00] VITALS: BP 135/95; PULSE 109; TEMP 98.1
[~2021-11-12 09:00] MED LIST changes: +ENTYVIO IV; +VITAMIN D31000 I1 PO
== END 2021-11-12 10:00 | disposition home or self-care (01) ==
LOC: EUO 09:00
DX: D50.9 Iron deficiency anemia, unspecified (principal)
CPT/HCPCS: J1644; J1756; J3380